=== PATIENT | male | born 1965 | race Caucasian/White ===

== ENCOUNTER → 2025-07-13 12:41 | Outpatient (BNVA) | payer OTHER, SELFPAY | PROVIDERS: PCP Emergency Medicine; Visit Provider Emergency Medicine | DX: M23.91 Unspecified internal derangement of right knee (principal); Z02.79 Encounter for issue of other medical certificate | CPT/HCPCS: 73562; 99203 ==

== ENCOUNTER → 2025-07-20 13:12 | Outpatient (BNVA) | payer OTHER, SELFPAY | PROVIDERS: PCP Emergency Medicine; Visit Provider Emergency Medicine | DX: M23.92 Unspecified internal derangement of left knee (principal) | CPT/HCPCS: 99213 ==